=== PATIENT | male | born 1985 | race Two or more races ===

== ENCOUNTER 2023-10-31 13:35 | Emergency (ER) | payer OTHER ==
[~2023-10-31] VITALS: Ht 167.6 cm; Wt 98.4 kg
[2023-10-31] MEDS ORDERED: LORA0.5T48 PO (13:55)
[2023-10-31] MEDS ORDERED: ONDA4TAB5 PO (13:55)
[2023-10-31] MEDS ORDERED: LACT10SO58 PO (14:24)
[2023-10-31] MEDS ORDERED: MAGN296S70 PO (14:24)
[2023-10-31] MEDS: MAGNESIUM CITRATE 296 ML BOTTLE PO ONE (14:41)
[2023-10-31 14:47] VITALS: BP 126/89; TEMP 98.4; O2SAT 98
== END 2023-10-31 14:47 | disposition home or self-care (01) ==
LOC: ER 13:38
DX: K59.00 Constipation, unspecified (principal); Z79.899 Other long term (current) drug therapy; Z60.2 Problems related to living alone
CPT/HCPCS: 74018; A4606; A4663